=== PATIENT | male | born 1995 | race Caucasian/White ===

== ENCOUNTER → 2022-06-30 | Outpatient (CLI) | payer OTHER ==
--- NOTE | 2022-07-01 21:35 | MR ---
EXAMINATION TYPE: MR brain wo/w con DATE OF EXAM: 06/30/2022 COMPARISON: NONE HISTORY: 26-year-old male [id number], Headache, syncope and collapse, history of head injury. TECHNIQUE: Multiplanar, multisequence images of the brain and brainstem were acquired before and aft er administration of 8.5 mL IV Gadavist. Diffusion weighted imaging is performed. FINDINGS: No evidence for acute infarction, hemorrhage, mass, mass effect, midline shift, herniation, effacemen t of basal cisterns, or extra-axial fluid collection. The ventricles and sulci are age-appropriate. Major intracranial flow voids are intact. T2/FLAIR weighted sequences show no white matter signal abnormality. SWI sequence shows no suspicious parenchymal susceptibility artifact to suggest prior intracranial hemorrhage. Midline structures demonstrate normal morphology. The craniocervical junction is normal. Post contrast images demonstrate no evidence of pathologic enhancement. Dural venous sinuses are pat ent. There is a 2.2 cm mucosal retention cyst along the anterior floor of the left maxillary sinus. Globes are intact. IMPRESSION: No white matter signal changes, enhancing lesions, or other specific abnormality seen. Incidental 2.2 cm mucosal retention cyst left maxillary sinus.
== END | disposition home or self-care (01) ==
LOC: RADMRIMAIN 13:39
PROVIDERS: ATTEND Internal Medicine
DX: J34.1 Cyst and mucocele of nose and nasal sinus (principal); R55 Syncope and collapse
CPT/HCPCS: 70553; A9585

== ENCOUNTER 2022-09-02 11:13 | Day surgery (SDC) | payer OTHER ==
[2022-08-31 13:16] VITALS: BMI 26.3
[~2022-09-02 11:13] MED LIST: SODIUM CHLORIDE 0.9% 1,000 ML IV SCH
[2022-09-02] MEDS ORDERED: SODIUM CHLORIDE 0.9% 500 ML 500 ML IV ONE (11:21)
[2022-09-02 11:34] VITALS: BP 131/80; RESP 16; TEMP 98.2
[2022-09-02 13:43] VITALS: PULSE 78
--- NOTE | 2022-09-07 18:44 | P.EPPROC ---
- EP Procedure Note Electrophysiology Procedure Note: Diagnosis Recurrent presyncope Baseline 12-lead EKG shows sinus mechanism normal PA narrow QRS early repolarization abnormality, normal variant Tilt table test per protocol Baseline blood pressure 117/74 mmHg, Mr. 172 beats a minute Patient was tilted upright at an angle of 70 per protocol No change in heart rate, no change in blood pressure He complained of lightheadedness immediately upon assuming upright position but there was no change in blood pressure He complained of feeling faint midway through the procedure. His heart rate is 90 beats a minute his blood pressure was 123/77 mmHg at that time He was placed supine at the end of the procedure Impression Normal twelve-lead EKG No evidence for neurocardiogenic syncope
== END 2022-09-02 13:21 | disposition home or self-care (01) ==
LOC: CATHEP 11:13
PROVIDERS: ATTEND Internal Medicine Clinical Cardiac Electrophysiology
DX: R55 Syncope and collapse (principal); Z82.49 Family history of ischemic heart disease and other diseases of the circulatory system; Z79.52 Long term (current) use of systemic steroids; Z91.040 Latex allergy status
CPT/HCPCS: 93660